=== PATIENT | female | born 1935 | race Caucasian/White ===

== ENCOUNTER 2016-11-29 13:41 | Inpatient (IN) | payer OTHER ==
[~2016-11-29] VITALS: Ht 152.4 cm; Wt 36.7 kg
[2016-11-29 13:41] VITALS: BP_SYST 120
[2016-11-29] MEDS ORDERED: NS 500 ML IV ONE (14:45)
[2016-11-29 14:56] LABS: BASOPHILS % (AUTO) 0.3 % (0.0-2.0); EOSINOPHILS % (AUTO) 0.2 % (0.0-4.0); HEMATOCRIT 34.2 % (36-48); HEMOGLOBIN 11.2 g/dL (12.0-16.0); LYMPHOCYTES # (AUTO) 0.8 K/uL (1.0-5.5); MEAN CORPUSCULAR HEMOGLOBIN 29 pg (27-31); MEAN CORPUSCULAR HGB CONC 33 % (32-36); MEAN CORPUSCULAR VOLUME 88 fL (79.0-98.0); MONOCYTES # (AUTO) 0.7 K/uL (0.0-1.0); MONOCYTES % (AUTO) 6.6 % (1.7-9.3); NEUTROPHILS # (AUTO) 9.5 K/uL (1.8-7.7); NEUTROPHILS % (AUTO) 85.9 % (40.0-70.0); PLATELET COUNT (AUTO) 285 K/uL (130-430); RED BLOOD CELL COUNT(AUTO) 3.89 MIL/uL (4.2-6.2); RED CELL DISTRIBUTION WIDTH 13.2 % (9.0-15.0)
[2016-11-29 14:57] LABS: ANION GAP 8 (5-15); CALCIUM 9.5 mg/dL (8.4-11.0); CHLORIDE 100 mmol/L (98-107); CREATININE 0.81 mg/dL (0.55-1.30); GLUCOSE 84 mg/dL (70-99); SODIUM SERUM 133 mmol/L (136-145); UREA NITROGEN, BLOOD 42 mg/dL (8-21)
[2016-11-29 15:01] LABS: PROTHROMBIN TIME 10.4 SECS (9.5-12.5)
[2016-11-29 15:02] LABS: ALANINE AMINOTRANSFERASE 25 U/L (12-78); ALBUMIN 3.4 g/dL (3.4-4.8); ASPARTATE AMINOTRANSFERASE 22 U/L (10-37); TOTAL BILIRUBIN 0.5 mg/dL (0.0-1.0)
[2016-11-29 15:10] VITALS: BP_SYST 146
[2016-11-29 15:47] LABS: BILIRUBIN,URINE NEGATIVE (NEGATIVE); BLOOD, URINE NEGATIVE (NEGATIVE); CLARITY/URINE CLEAR (CLEAR); COLOR,URINE YELLOW (YELLOW); GLUCOSE,URINE NEGATIVE (NEGATIVE); KETONES,URINE 2+ (NEGATIVE); LEUKOCYTE ESTERASE ,URINE NEGATIVE (NEGATIVE); NITRITE, URINE NEGATIVE (NEGATIVE); PROTEIN URINE TRACE (NEGATIVE); UROBILINOGEN,URINE 0.2 (0.2-1.0)
[2016-11-29 16:04] LABS: BACTERIA,URINE FEW /HPF (None Seen); MUCUS,URINE 1+ /LPF (None Seen); RBC,URINE NONE SEEN /HPF (0-3); WBC,URINE 0-3 /HPF (0-3)
[2016-11-29] MEDS ORDERED: PLE5 PO (17:36)
[2016-11-29] MEDS ORDERED: UMEC1BLS IH (17:36)
[2016-11-29] MEDS ORDERED: HYDR-1189 PO (17:36)
[2016-11-29] MEDS ORDERED: ASA81 PO (17:36)
[2016-11-29 18:10] VITALS: BP_SYST 146
[2016-11-29] MEDS ORDERED: IPRATROPIUM/ALBUTEROL SULFATE 3 ML AMPUL.NEB INH PRN (18:15)
[2016-11-29 20:00] VITALS: BP_SYST 115
[2016-11-29] MEDS: HYDROcodone/ACETAMIN 5-325 MG TAB (NORCO/ VICODIN) PO SCH (23:04)
[2016-11-30] VITALS (8 sets, daily range): BP systolic 117–155
[2016-11-30 07:13] LABS: BASOPHILS % (AUTO) 0.3 % (0.0-2.0); EOSINOPHILS # (AUTO) 0.1 K/uL (0.0-0.4); EOSINOPHILS % (AUTO) 1.1 % (0.0-4.0); HEMATOCRIT 29.1 % (36-48); HEMOGLOBIN 9.7 g/dL (12.0-16.0); LYMPHOCYTES # (AUTO) 1.3 K/uL (1.0-5.5); MEAN CORPUSCULAR HEMOGLOBIN 29 pg (27-31); MEAN CORPUSCULAR HGB CONC 33 % (32-36); MEAN CORPUSCULAR VOLUME 88 fL (79.0-98.0); MONOCYTES # (AUTO) 0.7 K/uL (0.0-1.0); MONOCYTES % (AUTO) 8.6 % (1.7-9.3); NEUTROPHILS # (AUTO) 6.2 K/uL (1.8-7.7); PLATELET COUNT (AUTO) 259 K/uL (130-430); RED BLOOD CELL COUNT(AUTO) 3.32 MIL/uL (4.2-6.2); RED CELL DISTRIBUTION WIDTH 13.4 % (9.0-15.0); WHITE BLOOD COUNT (AUTO) 8.3 K/uL (4.8-10.8)
[2016-11-30 07:30] LABS: ALANINE AMINOTRANSFERASE 22 U/L (12-78); ALBUMIN 2.9 g/dL (3.4-4.8); ANION GAP 8 (5-15); ASPARTATE AMINOTRANSFERASE 22 U/L (10-37); CALCIUM 8.4 mg/dL (8.4-11.0); CHLORIDE 102 mmol/L (98-107); CREATININE 0.64 mg/dL (0.55-1.30); GLUCOSE 95 mg/dL (70-99); POTASSIUM 3.5 mmol/L (3.5-5.1); SODIUM SERUM 134 mmol/L (136-145); THYROID STIMULATING HORMONE 0.61 uIu/mL (0.34-4.82); TOTAL BILIRUBIN 0.4 mg/dL (0.0-1.0); UREA NITROGEN, BLOOD 28 mg/dL (8-21)
[2016-11-30] MEDS ORDERED: aMILoride HCL 5 MG TABLET PO SCH (09:00)
[2016-11-30] MEDS ORDERED: FELODIPINE 5 MG TAB.SR.24H (PLENDIL) PO SCH (09:00)
[2016-11-30] MEDS: amLODIPine BESYLATE 5 MG TABLET PO SCH (09:06)
[2016-11-30] MEDS: ASPIRIN 81 MG TAB.CHEW PO SCH (09:06)
[2016-11-30] MEDS: HYDROcodone/ACETAMIN 5-325 MG TAB (NORCO/ VICODIN) PO SCH ×2 (10:47→17:09)
[2016-12-01 05:06] VITALS: BP_SYST 121
[2016-12-01 06:24] LABS: BASOPHILS # (AUTO) 0.1 K/uL (0.0-0.2); BASOPHILS % (AUTO) 0.6 % (0.0-2.0); EOSINOPHILS # (AUTO) 0.1 K/uL (0.0-0.4); EOSINOPHILS % (AUTO) 1.4 % (0.0-4.0); HEMATOCRIT 31.1 % (36-48); LYMPHOCYTES # (AUTO) 1.5 K/uL (1.0-5.5); LYMPHOCYTES % (AUTO) 14.8 % (20.5-51.5); MEAN CORPUSCULAR HEMOGLOBIN 29 pg (27-31); MEAN CORPUSCULAR HGB CONC 32 % (32-36); MEAN CORPUSCULAR VOLUME 91 fL (79.0-98.0); MONOCYTES # (AUTO) 0.8 K/uL (0.0-1.0); MONOCYTES % (AUTO) 8.2 % (1.7-9.3); NEUTROPHILS # (AUTO) 7.4 K/uL (1.8-7.7); PLATELET COUNT (AUTO) 283 K/uL (130-430); RED BLOOD CELL COUNT(AUTO) 3.43 MIL/uL (4.2-6.2); WHITE BLOOD COUNT (AUTO) 9.9 K/uL (4.8-10.8)
[2016-12-01 06:45] LABS: CALCIUM 8.4 mg/dL (8.4-11.0); CHLORIDE 99 mmol/L (98-107); CREATININE 0.65 mg/dL (0.55-1.30); GLUCOSE 97 mg/dL (70-99); POTASSIUM 3.6 mmol/L (3.5-5.1); UREA NITROGEN, BLOOD 16 mg/dL (8-21)
[2016-12-01] MEDS: HYDROcodone/ACETAMIN 5-325 MG TAB (NORCO/ VICODIN) PO PRN (06:48)
[2016-12-01 06:53] LABS: ANION GAP 5 (5-15); SODIUM SERUM 131 mmol/L (136-145)
[2016-12-01 08:00] VITALS: BP_SYST 151
[2016-12-01] MEDS: ASPIRIN 81 MG TAB.CHEW PO SCH (09:10)
[2016-12-01] MEDS: amLODIPine BESYLATE 5 MG TABLET PO SCH (09:10)
[2016-12-01 12:00] VITALS: BP_SYST 121
[2016-12-01 16:00] VITALS: BP_SYST 120
[2016-12-01] MEDS ORDERED: DIPHENHYDRAMINE INJ 50 MG/ML VIAL IVP ONE (16:45)
[2016-12-01] MEDS: QUEtiapine FUMARATE 25 MG TABLET PO SCH (17:29)
[2016-12-01] MEDS ORDERED: DIPHENHYDRAMINE INJ 50 MG/ML VIAL IVP PRN (17:30)
[2016-12-01 19:30] VITALS: BP_SYST 143
[2016-12-01] MEDS ORDERED: LORazepam 2 MG/ML VIAL IVP PRN ×2 (20:00→22:30)
[2016-12-01 23:36] VITALS: BP_SYST 99
[2016-12-02] VITALS (7 sets, daily range): BP systolic 100–142
[2016-12-02 07:00] LABS: BASOPHILS % (AUTO) 0.1 % (0.0-2.0); EOSINOPHILS # (AUTO) 0.2 K/uL (0.0-0.4); EOSINOPHILS % (AUTO) 1.7 % (0.0-4.0); HEMATOCRIT 31.6 % (36-48); HEMOGLOBIN 10.3 g/dL (12.0-16.0); LYMPHOCYTES # (AUTO) 1.4 K/uL (1.0-5.5); LYMPHOCYTES % (AUTO) 14.9 % (20.5-51.5); MEAN CORPUSCULAR HEMOGLOBIN 29 pg (27-31); MEAN CORPUSCULAR HGB CONC 33 % (32-36); MEAN CORPUSCULAR VOLUME 89 fL (79.0-98.0); MONOCYTES % (AUTO) 9.9 % (1.7-9.3); NEUTROPHILS # (AUTO) 7.1 K/uL (1.8-7.7); NEUTROPHILS % (AUTO) 73.4 % (40.0-70.0); PLATELET COUNT (AUTO) 286 K/uL (130-430); RED BLOOD CELL COUNT(AUTO) 3.54 MIL/uL (4.2-6.2); RED CELL DISTRIBUTION WIDTH 13.4 % (9.0-15.0); WHITE BLOOD COUNT (AUTO) 9.7 K/uL (4.8-10.8)
[2016-12-02 07:18] LABS: ANION GAP 6 (5-15); CALCIUM 8.8 mg/dL (8.4-11.0); CHLORIDE 102 mmol/L (98-107); GLUCOSE 87 mg/dL (70-99); POTASSIUM 3.5 mmol/L (3.5-5.1); SODIUM SERUM 134 mmol/L (136-145); UREA NITROGEN, BLOOD 17 mg/dL (8-21)
[2016-12-02] MEDS: amLODIPine BESYLATE 5 MG TABLET PO SCH (09:33)
[2016-12-02] MEDS: ASPIRIN 81 MG TAB.CHEW PO SCH (09:33)
[2016-12-02] MEDS: QUEtiapine FUMARATE 25 MG TABLET PO SCH (18:06)
[2016-12-03 04:00] VITALS: BP_SYST 134
[2016-12-03 05:09] LABS: FOLATE (FOLIC ACID) 17.8 ng/mL (>3.0)
[2016-12-03 08:38] VITALS: BP_SYST 132
[2016-12-03] MEDS: ASPIRIN 81 MG TAB.CHEW PO SCH (10:15)
[2016-12-03] MEDS: amLODIPine BESYLATE 5 MG TABLET PO SCH (10:16)
[2016-12-03 12:14] VITALS: BP_SYST 136
[2016-12-03 15:09] VITALS: BP_SYST 118
[2016-12-03 16:40] VITALS: BP_SYST 134
[2016-12-03] MEDS: QUEtiapine FUMARATE 25 MG TABLET PO SCH (18:51)
[2016-12-03 20:00] VITALS: BP_SYST 131
[2016-12-04] VITALS (9 sets, daily range): BP systolic 119–166
[2016-12-04] MEDS: ASPIRIN 81 MG TAB.CHEW PO SCH (09:19)
[2016-12-04] MEDS: QUEtiapine FUMARATE 25 MG TABLET PO SCH ×3 (09:19→22:06)
[2016-12-04] MEDS: amLODIPine BESYLATE 5 MG TABLET PO SCH (09:20)
[2016-12-04] MEDS: HYDROcodone/ACETAMIN 5-325 MG TAB (NORCO/ VICODIN) PO PRN (22:06)
[2016-12-05 03:38] VITALS: BP_SYST 116
[2016-12-05 08:00] VITALS: BP_SYST 140
[2016-12-05] MEDS: QUEtiapine FUMARATE 25 MG TABLET PO SCH ×3 (09:11→21:00)
[2016-12-05] MEDS: ASPIRIN 81 MG TAB.CHEW PO SCH (09:12)
[2016-12-05] MEDS: amLODIPine BESYLATE 5 MG TABLET PO SCH (09:12)
[2016-12-05 12:29] VITALS: BP_SYST 124
[2016-12-05 16:13] VITALS: BP_SYST 133
[2016-12-05 19:55] VITALS: BP_SYST 121
[2016-12-06] VITALS (7 sets, daily range): BP systolic 108–143
[2016-12-06] MEDS: amLODIPine BESYLATE 5 MG TABLET PO SCH (08:58)
[2016-12-06] MEDS: QUEtiapine FUMARATE 25 MG TABLET PO SCH ×3 (08:58→21:00)
[2016-12-06] MEDS: ASPIRIN 81 MG TAB.CHEW PO SCH (08:59)
[2016-12-06] MEDS: HYDROcodone/ACETAMIN 5-325 MG TAB (NORCO/ VICODIN) PO PRN (12:56)
[2016-12-07 03:09] VITALS: BP_SYST 140
[2016-12-07 07:55] VITALS: BP_SYST 148
[2016-12-07] MEDS: ASPIRIN 81 MG TAB.CHEW PO SCH (09:16)
[2016-12-07] MEDS: QUEtiapine FUMARATE 25 MG TABLET PO SCH ×3 (09:16→20:51)
[2016-12-07] MEDS: amLODIPine BESYLATE 5 MG TABLET PO SCH (09:17)
[2016-12-07 11:29] VITALS: BP_SYST 122
[2016-12-07 15:31] VITALS: BP_SYST 125
[2016-12-07 19:55] VITALS: BP_SYST 137
[2016-12-08 00:22] VITALS: BP_SYST 139
[2016-12-08 03:20] VITALS: BP_SYST 144
[2016-12-08] MEDS: QUEtiapine FUMARATE 25 MG TABLET PO SCH ×3 (08:12→21:26)
[2016-12-08] MEDS: amLODIPine BESYLATE 5 MG TABLET PO SCH (08:12)
[2016-12-08] MEDS: ASPIRIN 81 MG TAB.CHEW PO SCH (08:12)
[2016-12-08 12:27] VITALS: BP_SYST 128
[2016-12-08 16:04] VITALS: BP_SYST 121
[2016-12-08 19:39] VITALS: BP_SYST 118
[2016-12-09 00:52] VITALS: BP_SYST 131
[2016-12-09 03:25] VITALS: BP_SYST 130
[2016-12-09 06:15] LABS: BASOPHILS # (AUTO) 0.1 K/uL (0.0-0.2); BASOPHILS % (AUTO) 0.8 % (0.0-2.0); EOSINOPHILS # (AUTO) 0.2 K/uL (0.0-0.4)
[2016-12-09 06:32] LABS: EOSINOPHILS % (AUTO) 1.8 % (0.0-4.0); HEMATOCRIT 32.2 % (36-48); HEMOGLOBIN 10.3 g/dL (12.0-16.0); LYMPHOCYTES # (AUTO) 1.5 K/uL (1.0-5.5); LYMPHOCYTES % (AUTO) 16.8 % (20.5-51.5); MEAN CORPUSCULAR HEMOGLOBIN 28 pg (27-31); MEAN CORPUSCULAR HGB CONC 32 % (32-36); MEAN CORPUSCULAR VOLUME 88 fL (79.0-98.0); MONOCYTES # (AUTO) 0.9 K/uL (0.0-1.0); MONOCYTES % (AUTO) 9.5 % (1.7-9.3); NEUTROPHILS # (AUTO) 6.3 K/uL (1.8-7.7); NEUTROPHILS % (AUTO) 71.1 % (40.0-70.0); PLATELET COUNT (AUTO) 388 K/uL (130-430); RED BLOOD CELL COUNT(AUTO) 3.66 MIL/uL (4.2-6.2); RED CELL DISTRIBUTION WIDTH 13.4 % (9.0-15.0)
[2016-12-09 06:47] LABS: ANION GAP 7 (5-15); CHLORIDE 104 mmol/L (98-107); CREATININE 0.61 mg/dL (0.55-1.30); GLUCOSE 87 mg/dL (70-99); SODIUM SERUM 136 mmol/L (136-145); UREA NITROGEN, BLOOD 20 mg/dL (8-21)
[2016-12-09 08:06] VITALS: BP_SYST 160
[2016-12-09] MEDS: ASPIRIN 81 MG TAB.CHEW PO SCH (08:22)
[2016-12-09] MEDS: QUEtiapine FUMARATE 25 MG TABLET PO SCH ×3 (08:22→20:18)
[2016-12-09] MEDS: amLODIPine BESYLATE 5 MG TABLET PO SCH (08:23)
[2016-12-09] MEDS: HYDROcodone/ACETAMIN 5-325 MG TAB (NORCO/ VICODIN) PO PRN ×2 (08:27→15:44)
[2016-12-09 12:39] VITALS: BP_SYST 122
[2016-12-09 16:31] VITALS: BP_SYST 146
[2016-12-09 20:00] VITALS: BP_SYST 113
[2016-12-10] VITALS (7 sets, daily range): BP systolic 100–156
[2016-12-10] MEDS: HYDROcodone/ACETAMIN 5-325 MG TAB (NORCO/ VICODIN) PO PRN ×2 (05:19→08:41)
[2016-12-10] MEDS: amLODIPine BESYLATE 5 MG TABLET PO SCH (08:40)
[2016-12-10] MEDS: QUEtiapine FUMARATE 25 MG TABLET PO SCH ×3 (08:40→20:10)
[2016-12-10] MEDS: ASPIRIN 81 MG TAB.CHEW PO SCH (08:40)
[2016-12-10] MEDS ORDERED: HYDROcodone/ACETAMIN 5-325 MG TAB (NORCO/ VICODIN) PO PRN (16:29)
[2016-12-11 03:55] VITALS: BP_SYST 135
[2016-12-11 08:00] VITALS: BP_SYST 142
[2016-12-11] MEDS: QUEtiapine FUMARATE 25 MG TABLET PO SCH (08:49)
[2016-12-11] MEDS: amLODIPine BESYLATE 5 MG TABLET PO SCH (08:50)
[2016-12-11] MEDS: ASPIRIN 81 MG TAB.CHEW PO SCH (08:50)
[2016-12-11 10:39] VITALS: BP_SYST 135
[2016-12-11 12:42] VITALS: BP_SYST 135
[2016-12-11 14:34] VITALS: BP_SYST 135
== END 2016-12-11 13:54 | disposition home health service (06) | DRG 377 ==
LOC: SED 13:41 → STU 16:23 → SMU 12-01 17:11
PROVIDERS: ADMIT Internal Medicine; ATTEND Internal Medicine
DX: K92.2 Gastrointestinal hemorrhage, unspecified (principal); G92 Toxic encephalopathy; E43 Unspecified severe protein-calorie malnutrition; R64 Cachexia; F23 Brief psychotic disorder; Z68.1 Body mass index [BMI] 19.9 or less, adult; J44.9 Chronic obstructive pulmonary disease, unspecified; F03.90 Unspecified dementia, unspecified severity, without behavioral disturbance, psychotic disturbance, mood disturbance, and anxiety; G89.4 Chronic pain syndrome; M47.9 Spondylosis, unspecified; I70.90 Unspecified atherosclerosis; M81.0 Age-related osteoporosis without current pathological fracture; I10 Essential (primary) hypertension; D64.9 Anemia, unspecified; Z88.1 Allergy status to other antibiotic agents; Z88.5 Allergy status to narcotic agent; Z88.8 Allergy status to other drugs, medicaments and biological substances; Z79.82 Long term (current) use of aspirin; Z79.899 Other long term (current) drug therapy
CPT/HCPCS: 36415; 70450-TC; 71010; 80048; 80053; 81000-TC; 82550-TC; 82607; 82746; 84439; 84443-TC; 84484; 85025; 85610-TC; 85730-TC; 87040-TC; 93005; 96360; 97110-GP; 97116-GP; 97530-GP; 99285; J1200; J2060; J7040

== ENCOUNTER 2018-01-22 | Emergency (ER) | payer OTHER ==
[~2018-01-22] VITALS: Ht 144.8 cm; Wt 44.0 kg
[2018-01-22] VITALS: BP_SYST 118
[~2018-01-22] MED LIST: ALBMDI INH; ASA81 PO; CALC-1094 PO; DENO60DI SQ; PLE5 PO; UMEC1BLS IH
--- NOTE | 2018-01-22 | NUR ---
Patient brought to ED a/o x 2 by [employer] with c/o syncopal episode. Per patient family, patient had a witnessed syncopal event in which she collapsed for approximately 30 seconds while walking to the kitchen. Did not strike head. -N/V. -CP -SOB. Patient has hx of dementia. Confused at baseline.
--- NOTE | 2018-01-22 | NUR ---
Patient to ER bed 5 to gown for evaluation. Side rails up. Report given to CLAUS BALDERAS.
--- NOTE | 2018-01-22 00:22 | NUR ---
ER at bedside examining patient.
[2018-01-22] MEDS ORDERED: NACL 0.9% 1,000 ML IV ONE (00:27)
--- NOTE | 2018-01-22 00:30 | NUR ---
#22 gauge angiocath placed to right forearm. Use of asceptic technique. Opsite placed over site. Blood return noted. Blood for lab drawn from site. Flushed with 10 cc of normal saline. No evidence of infiltration noted. Patient tolerated well.
[2018-01-22 01:09] LABS: PROTHROMBIN TIME 10.3 SECS (9.5-12.5)
[2018-01-22 01:10] LABS: BASOPHILS # (AUTO) 0.1 K/uL (0.0-0.2); EOSINOPHILS # (AUTO) 0.6 K/uL (0.0-0.4); EOSINOPHILS % (AUTO) 5.4 % (0.0-4.0); HEMATOCRIT 36.7 % (36-48); HEMOGLOBIN 11.3 g/dL (12.0-16.0); LYMPHOCYTES # (AUTO) 1.2 K/uL (1.0-5.5); LYMPHOCYTES % (AUTO) 12.1 % (20.5-51.5); MEAN CORPUSCULAR HEMOGLOBIN 26 pg (27-31); MEAN CORPUSCULAR HGB CONC 31 % (32-36); MEAN CORPUSCULAR VOLUME 83 fL (79.0-98.0); MONOCYTES # (AUTO) 0.9 K/uL (0.0-1.0); MONOCYTES % (AUTO) 9.1 % (1.7-9.3); NEUTROPHILS # (AUTO) 7.4 K/uL (1.8-7.7); NEUTROPHILS % (AUTO) 72.4 % (40.0-70.0); PLATELET COUNT (AUTO) 289 K/uL (130-430); RED CELL DISTRIBUTION WIDTH 16.4 % (9.0-15.0); WHITE BLOOD COUNT (AUTO) 10.2 K/uL (4.8-10.8)
--- NOTE | 2018-01-22 01:10 | NUR ---
Patient transported off unit for CT via gurney. Accompanied by radiology staff.
[2018-01-22 01:13] LABS: ANION GAP 9 (5-15); CALCIUM 9.5 mg/dL (8.4-11.0); CHLORIDE 100 mmol/L (98-107); GLUCOSE 102 mg/dL (70-99); POTASSIUM 4.2 mmol/L (3.5-5.1); SODIUM SERUM 134 mmol/L (136-145); UREA NITROGEN, BLOOD 26 mg/dL (8-21)
[2018-01-22 01:17] LABS: ALANINE AMINOTRANSFERASE 32 U/L (12-78); ALBUMIN 3.3 g/dL (3.4-4.8); ASPARTATE AMINOTRANSFERASE 29 U/L (10-37); TOTAL BILIRUBIN 0.2 mg/dL (0.0-1.0)
--- NOTE | 2018-01-22 01:31 | NUR ---
Patient returned to unit.
--- NOTE | 2018-01-22 01:45 | NUR ---
# 14 FR In and Out catheter with use of sterile technique. Immediate return of 125 ml cloudy yellow urine noted. Urine sample collected and sent to lab. Pt tolerated procedure well.
[2018-01-22 02:00] LABS: BILIRUBIN,URINE NEGATIVE (NEGATIVE); BLOOD, URINE NEGATIVE (NEGATIVE); CLARITY/URINE CLEAR (CLEAR); COLOR,URINE YELLOW (YELLOW); GLUCOSE,URINE NEGATIVE (NEGATIVE); KETONES,URINE NEGATIVE (NEGATIVE); LEUKOCYTE ESTERASE ,URINE NEGATIVE (NEGATIVE); NITRITE, URINE NEGATIVE (NEGATIVE); PH,URINE 6.5 (5.0-8.0); PROTEIN URINE NEGATIVE (NEGATIVE); UROBILINOGEN,URINE 0.2 (0.2-1.0)
[2018-01-22 02:30] VITALS: BP_SYST 121
--- NOTE | 2018-01-22 02:30 | NUR ---
Patient given written and verbal discharge instructions and verbalizes understanding. ER MD discussed with patient the results and treatment provided. Patient in stable condition. ID arm band removed. IV catheter removed intact and dressing applied, no active bleeding. No Rx given. Patient educated on pain management and to follow up with PMD. Pain Scale 0/10 at this time. Opportunity for questions provided and answered.
== END 2018-01-22 02:30 | disposition home or self-care (01) ==
LOC: SED
DX: R55 Syncope and collapse (principal); J44.9 Chronic obstructive pulmonary disease, unspecified; F03.90 Unspecified dementia, unspecified severity, without behavioral disturbance, psychotic disturbance, mood disturbance, and anxiety; I10 Essential (primary) hypertension; M81.0 Age-related osteoporosis without current pathological fracture; Z79.899 Other long term (current) drug therapy; Z88.1 Allergy status to other antibiotic agents; Z88.5 Allergy status to narcotic agent; Z88.7 Allergy status to serum and vaccine
CPT/HCPCS: 36415; 70450; 71045; 80053; 81003; 84484; 85025; 85610; 85730; 93005; 96360; 99285; J7030

== ENCOUNTER 2018-02-13 14:32 | Inpatient (IN) | payer OTHER ==
[~2018-02-13] VITALS: Ht 142.2 cm; Wt 37.2 kg
[2018-02-13 14:32] VITALS: BP_SYST 116
[2018-02-13] MEDS ORDERED: MORPHINE 2 MG/ML INJ. SYRINGE IM ONE (15:45)
[2018-02-13 15:56] LABS: BASOPHILS # (AUTO) 0.1 K/uL (0.0-0.2); BASOPHILS % (AUTO) 1.1 % (0.0-2.0); EOSINOPHILS # (AUTO) 0.3 K/uL (0.0-0.4); EOSINOPHILS % (AUTO) 3.5 % (0.0-4.0); HEMATOCRIT 35.4 % (36-48); HEMOGLOBIN 11.5 g/dL (12.0-16.0); LYMPHOCYTES # (AUTO) 0.9 K/uL (1.0-5.5); LYMPHOCYTES % (AUTO) 11.8 % (20.5-51.5); MEAN CORPUSCULAR HEMOGLOBIN 28 pg (27-31); MEAN CORPUSCULAR HGB CONC 33 % (32-36); MEAN CORPUSCULAR VOLUME 86 fL (79.0-98.0); MONOCYTES # (AUTO) 0.7 K/uL (0.0-1.0); MONOCYTES % (AUTO) 9.7 % (1.7-9.3); NEUTROPHILS # (AUTO) 5.5 K/uL (1.8-7.7); NEUTROPHILS % (AUTO) 73.9 % (40.0-70.0); PLATELET COUNT (AUTO) 317 K/uL (130-430); RED BLOOD CELL COUNT(AUTO) 4.13 MIL/uL (4.2-6.2); RED CELL DISTRIBUTION WIDTH 16.1 % (9.0-15.0); WHITE BLOOD COUNT (AUTO) 7.5 K/uL (4.8-10.8)
[2018-02-13 16:01] LABS: ANION GAP 7 (5-15); CALCIUM 9.3 mg/dL (8.4-11.0); CHLORIDE 98 mmol/L (98-107); CREATININE 0.64 mg/dL (0.55-1.30); GLUCOSE 97 mg/dL (70-99); POTASSIUM 4.5 mmol/L (3.5-5.1); PROTHROMBIN TIME 10.3 SECS (9.5-12.5); SODIUM SERUM 131 mmol/L (136-145); UREA NITROGEN, BLOOD 16 mg/dL (8-21)
[2018-02-13 16:06] LABS: ALANINE AMINOTRANSFERASE 33 U/L (12-78); ALBUMIN 3.1 g/dL (3.4-4.8); ASPARTATE AMINOTRANSFERASE 25 U/L (10-37); TOTAL BILIRUBIN 0.3 mg/dL (0.0-1.0)
[2018-02-13] MEDS ORDERED: ACETAMINOPHEN 325 MG TABLET PO ONE (17:30)
[2018-02-13] MEDS ORDERED: MEMA5TAB PO (17:31)
[2018-02-13] MEDS ORDERED: CALC200T47 PO (17:31)
[2018-02-13] MEDS ORDERED: ASPI-1154 PO (17:31)
[2018-02-13] MEDS ORDERED: DENO60DI SQ (17:31)
[2018-02-13] MEDS ORDERED: CHOL400T14 PO (17:31)
[2018-02-13] MEDS ORDERED: ALBMDI INH (17:31)
[2018-02-13] MEDS ORDERED: PLE5 PO (17:31)
[2018-02-13] MEDS ORDERED: VITA1CAP PO (17:31)
[2018-02-13] MEDS ORDERED: ACET-2165 PO (17:31)
[2018-02-13] MEDS ORDERED: UMEC1BLS IH (17:31)
[2018-02-13 18:09] VITALS: BP_SYST 162
[2018-02-13 19:45] VITALS: BP_SYST 140
[2018-02-13] MEDS: KETOROLAC TROMETHAMINE 15 MG VIAL IVP PRN (20:12)
[2018-02-13] MEDS: MEMANTINE HCL 5 MG TABLET PO SCH (20:17)
[2018-02-13] MEDS: ACETAMINOPHEN 325 MG TABLET PO SCH (22:09)
[2018-02-13] MEDS: ENOXAPARIN SODIUM 30 MG/0.3 ML SYRINGE SUBCUT SCH (22:10)
[2018-02-13 22:12] LABS: BILIRUBIN,URINE NEGATIVE (NEGATIVE); BLOOD, URINE NEGATIVE (NEGATIVE); CLARITY/URINE CLEAR (CLEAR); COLOR,URINE YELLOW (YELLOW); GLUCOSE,URINE NEGATIVE (NEGATIVE); KETONES,URINE NEGATIVE (NEGATIVE); LEUKOCYTE ESTERASE ,URINE 1+ (NEGATIVE); NITRITE, URINE NEGATIVE (NEGATIVE); PH,URINE 6.5 (5.0-8.0); PROTEIN URINE NEGATIVE (NEGATIVE); UROBILINOGEN,URINE 0.2 (0.2-1.0)
[2018-02-13 22:28] LABS: BACTERIA,URINE MODERATE /HPF (None Seen); RBC,URINE 0-3 /HPF (0-3)
[2018-02-13 23:35] VITALS: BP_SYST 148
[2018-02-14] MEDS: KETOROLAC TROMETHAMINE 15 MG VIAL IVP PRN ×2 (04:17→20:34)
[2018-02-14 07:52] VITALS: BP_SYST 150
[2018-02-14] MEDS ORDERED: CALCIUM 500 MG/TAB PO SCH (09:00)
[2018-02-14] MEDS ORDERED: ASPIRIN 81 MG TABLET(ECOTRIN) PO SCH (09:00)
[2018-02-14] MEDS ORDERED: amLODIPine BESYLATE 5 MG TABLET PO SCH (09:00)
[2018-02-14] MEDS ORDERED: FELODIPINE 5 MG TAB.SR.24H (PLENDIL) PO SCH ×2 (09:00)
[2018-02-14] MEDS ORDERED: VITAMIN B COMPLEX 1 CAP/TAB PO SCH (09:00)
[2018-02-14] MEDS ORDERED: CALCIUM CITRATE 200 MG TABLET PO SCH (09:00)
[2018-02-14] MEDS: MEMANTINE HCL 5 MG TABLET PO SCH ×2 (09:33→20:33)
[2018-02-14] MEDS: ACETAMINOPHEN 325 MG TABLET PO SCH ×3 (09:34→20:32)
[2018-02-14 12:05] VITALS: BP_SYST 132
[2018-02-14 16:02] VITALS: BP_SYST 133
[2018-02-14 19:45] VITALS: BP_SYST 145
[2018-02-14] MEDS: ENOXAPARIN SODIUM 30 MG/0.3 ML SYRINGE SUBCUT SCH (20:33)
[2018-02-14 22:47] VITALS: BP_SYST 95
== END 2018-02-14 23:05 | disposition short-term general hospital (02) | DRG 536 ==
LOC: SED 14:32 → SMU 17:45
PROVIDERS: ADMIT Family Medicine; ATTEND Family Medicine
DX: S72.002A Fracture of unspecified part of neck of left femur, initial encounter for closed fracture (principal); E87.1 Hypo-osmolality and hyponatremia; F03.90 Unspecified dementia, unspecified severity, without behavioral disturbance, psychotic disturbance, mood disturbance, and anxiety; I10 Essential (primary) hypertension; M81.0 Age-related osteoporosis without current pathological fracture; J44.9 Chronic obstructive pulmonary disease, unspecified; W18.30XA Fall on same level, unspecified, initial encounter; Y93.89 Activity, other specified; Y92.89 Other specified places as the place of occurrence of the external cause; Y99.8 Other external cause status; Z88.5 Allergy status to narcotic agent; Z88.8 Allergy status to other drugs, medicaments and biological substances; Z88.1 Allergy status to other antibiotic agents; Z79.899 Other long term (current) drug therapy; Z79.82 Long term (current) use of aspirin
CPT/HCPCS: 36415; 72100-TC; 72170-TC; 72194-TC; 73030; 73502; 80053; 81000-TC; 85025; 85610-TC; 87086; 87186-TC; 99285; J1650; J1885; Q9967